=== PATIENT | female | born 1990 | race Caucasian/White ===

== ENCOUNTER 2017-12-07 01:20 | Emergency (ER) | payer MEDICAID ==
[~2017-12-07] VITALS: Ht 160 cm; Wt 76.2 kg
[2017-12-07 01:44] VITALS: BP 131/100
[2017-12-07 01:56] LABS: BILIRUBIN,URINE NEGATIVE (NEGATIVE); UROBILINOGEN,URINE NORMAL (NEGATIVE)
--- NOTE | 2017-12-07 02:00 | ER.PDOC ---
General Chief Complaint: Abdomen Pain Stated Complaint: R SIDE PAIN Time seen by MD: 01:58 Source: patient Exam Limitations: no limitations History of Present Illness Initial Comments 27 year old white female with three days of worsening abdominal pain. RLQ in location and is getting worse. No fever, no chills, no dysuria. Ate at 8 pm last night. No diarrhea Timing/Duration: other (three days) Severity/Quality: severe Radiation: no radiation Exacerbated by: nothing Relieved By: other Allergies: Coded Allergies: sulfamethoxazole (Verified Allergy, Mild, Swelling, 12/07/17) trimethoprim (Verified Allergy, Mild, Swelling, 12/07/17) Vital Signs First Vital Signs Date Time Temp Pulse Resp B/P (MAP) Pulse Ox O2 Delivery O2 Flow Rate FiO2 12/07/17 01:41 97.6 78 16 100 12/07/17 01:44 131/100 (110) Last Vital Signs Date Time Temp Pulse Resp B/P (MAP) Pulse Ox O2 Delivery O2 Flow Rate FiO2 12/07/17 01:44 97.6 78 16 131/100 (110) 100 Past Medical History Medical History: no pertinent history Surgical History: no surgical history LMP (females 10-50): last week Social History Smoking: greater than 1 pack/day Alcohol Use: none Drug Use: none Constitutional: no symptoms reported EENTM: no symptoms reported Respiratory: no symptoms reported Cardiovascular: no symptoms reported Gastrointestinal: see HPI Genitourinary: no symptoms reported Musculoskeletal: no symptoms reported Skin: no symptoms reported Psychiatric/Neurological: no symptoms reported Endocrine: no symptoms reported Hematologic/Lymphatic: no symptoms reported Physical Exam General Appearance: No Apparent Distress, WD/WN HEENT: PERRL/EOMI, Normal ENT Inspection, TMs Normal, Pharynx Normal Neck: Non-Tender, Full Range of Motion, Supple, Normal Inspection Respiratory: chest non-tender, lungs clear, normal breath sounds, no respiratory distress, no accessory muscle use Cardiovascular: Normal Peripheral Pulses, Regular Rate, Rhythm, No Edema, No Gallop, No JVD, No Murmur Gastrointestinal: Normal Bowel Sounds, No Organomegaly, No Pulsatile Mass, Tenderness (rlq on direct and rebound?) Extremities: Normal Range of Motion, Non-Tender, Normal Inspection, No Pedal Edema, No Calf Tenderness, Normal Capillary Refill, Pelvis Stable 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, No Motor/Sensory Deficits, Alert, Normal Mood/Affect, Oriented x 3 Skin: Normal Color, Warm/Dry Lymphatic: No Adenopathy Course Blood Pressure Systolic: 131 Blood Pressure Diastolic: 100 Blood Pressure Mean: 110 Notes Feels better on recheck Departure Time of Disposition: 04:42 Disposition: 01 HOME, SELF-CARE Impression: Primary Impression: Abdominal pain Condition: Stable Referrals: PCP,UNKNOWN (PCP) PRIMARY CARE PROVIDER Additional Instructions: Follow up PCP RTER prn Bentyl prn/Tramadol prn Duration or Time Spent with Pa: 45 Problem Qualifiers Primary Impression: Abdominal pain Abdominal location: right lower quadrant Qualified Codes: R10.31 - Right lower quadrant pain NEVA MONSALVE MD Dec 07, 2017 02:00
[2017-12-07] MEDS ORDERED: TORADOL IV STA (02:15)
[2017-12-07] MEDS ORDERED: TORADOL ONE (02:17)
[2017-12-07] MEDS ORDERED: NS 1000ML 1,000 ML ONE (02:18)
[2017-12-07 02:19] LABS: BASOPHIL % 0.3 % (0.0-0.2); EOSINOPHIL # 0.1 10^3/uL (0.0-0.2); HEMOGLOBIN 13.1 g/dL (12.0-15.0); LYMPHOCYTES % 28.4 % (24.0-44.0); MEAN CELL HGB 28.3 pg (26-34); MEAN CELL HGB CONCENTRATION 33.7 g/dL (33-37); MEAN PLATELET VOLUME 9.8 fL (7.8-11.0); MONOCYTES # 0.6 10^3/uL (0.3-0.8); MONOCYTES % 5.7 % (5.0-12.0); NEUTROPHIL # 6.8 10^3/uL (1.8-7.7); NEUTROPHILS % 64.6 % (41.0-85.0); PLATELET COUNT 269 10^3/uL (150-400); RED CELL DISTRIBUTION WIDTH 13.6 % (11.5-14.5); WHITE BLOOD CELL 10.6 10^3/uL (4.5-11.0)
[2017-12-07 02:24] LABS: APPEARANCE,URINE CLOUDY (CLEAR); UA COLOR YELLOW (YELLOW)
[2017-12-07 02:28] LABS: CALCIUM 8.7 mg/dL (8.4-10.5); CARBON DIOXIDE 25.2 mmol/L (20.0-32)
[2017-12-07] MEDS ORDERED: NS 1000ML 1,000 ML IV ONE (02:30)
--- NOTE | 2017-12-07 03:29 | NUR ---
RADIOLOGY [facility] NOTIFIED OF CT SCAN, MELLO HAS EVERYTHING READY FOR PATIENT TO BE SCANNED AT 0350
--- NOTE | 2017-12-07 04:26 | DIREP ---
PROCEDURE:CT ABDOMEN/PELVIS W/ CONTRAST COMPARISON:None. INDICATIONS:abdominal pain TECHNIQUE:Axial images were created through the abdomen and pelvis with non-ionic intravenous contrast material. Oral contrast was administered. Sagittal and coronal reconstructions were performed from source images. FINDINGS: LUNG BASES:Normal. No visible pulmonary or pleural disease. LIVER:Normal. No significant liver lesions are identified. BILIARY:Normal. No visible dilatation or calcification. PANCREAS:Normal. No lesion, fluid collection, ductal dilatation, or atrophy. SPLEEN:Normal. No enlargement or focal lesion. ADRENALS:Normal. No mass or enlargement. URINARY TRACT:Normal. No urinary calculi. No focal lesions or hydronephrosis. AORTA/VASCULAR:Normal. No aneurysm. RETROPERITONEUM:Normal. No mass or adenopathy. BOWEL/MESENTERY:The appendix is visualized and appears normal. There is no intestinal obstruction, free fluid, free air or mesenteric inflammatory changes. ABDOMINAL WALL:Small umbilical hernia containing only fat. PELVIC ORGANS:Normal. No visible mass. Pelvic organs appropriate for patient age. BONES:Normal for age. No bony lesion or acute fracture. OTHER:Moderate size hiatal hernia. CONCLUSION: 1. No acute abdomen/pelvis abnormalities. 2. Moderate size hiatal hernia. 3. Small fat containing umbilical hernia. Dictated by: Francis Carter M.D. on 12/07/2017 at 04:22 AM
[2017-12-07 04:58] VITALS: BP 131/100
== END 2017-12-07 04:56 | disposition home or self-care (01) ==
LOC: ER 01:20
DX: R10.31 Right lower quadrant pain (principal); Z88.2 Allergy status to sulfonamides; F17.200 Nicotine dependence, unspecified, uncomplicated
CPT/HCPCS: 36415; 74177; 80053; 81000; 81025; 82150; 83690; 85025; 85610; 96361; 96374; 99285; J1885; J7030; Q9963; Q9965